=== PATIENT | male | born 1975 | race Caucasian/White ===

== ENCOUNTER 2016-06-21 04:52 | Emergency (ER) | payer OTHER ==
[~2016-06-21] VITALS: Ht 180.3 cm; Wt 84.4 kg
[~2016-06-21 04:52] MED LIST: 'PARAFON FORTE500 M1 PO; AMOXIL500 MG PO; ASPIRIN ADULT L81 M2 PO; ATIVAN1 MG PO; CLARITIN-D 24 H1 TER PO; CLARITIN10 MG PO; CLINDAMYCIN HC300 MG PO; CLINDAMYCIN150 MG PO; COLCHICINE0.6 MG PO; COLCRYS0.6 M1 PO; ENOXAPARIN100 MG/ML SC; FLAGYL500 MG PO; FLEXERIL5 MG PO; FLONASE ALLERG9.9 ML NAS; HYDROCODONE BIT1 T11 PO; IBU800 M1 PO; INDOCIN25 MG PO; KEFLEX500 MG PO; LISINOPRIL5 MG PO; LOPRESSOR25 MG PO; MEDROL DOSEPAK4 MG PO; MOBIC7.5 MG PO; MOTRIN800 MG PO; NAPROSYN500 MG PO; NATURE'S BLEND F1 MG PO; NICODERM C14 MG/241 T; NITRO-BID21 T; NKHM; NORCO 325 MG-51 TAB PO; PANTOPRAZOLE SO40 MG PO; PARAFON FORTE500 MG PO; PREDNISONE10 MG PO; PREDNISONE20 M1 PO; ROBITUSSIN AC 110 ML PO; TESSALON PERLE200 MG PO; TOPROL XL25 MG PO; TRAMADOL HCL50 MG PO; ULTRAM50 MG PO; VICODIN 500 MG-1 TAB PO; ZITHROMAX Z PA250 MG PO; ZYRTEC10 MG PO; Zofran4 MG PO
[2016-06-21 05:40] LABS: BASO % 0.3 % (0.0-1.0); EOS # 0.1 10*3/uL (0.0-0.4); EOS % 1.6 % (1.0-4.0); HEMATOCRIT 42.2 % (42.0-52.0); HEMOGLOBIN 14.1 g/dl (14.0-18.0); LYMPH # 2.5 10*3/uL (1.3-4.4); MEAN CELL VOLUME 87.2 fl (80.0-94.0); MEAN CORPUSCULAR HGB 29.1 pg (27.0-31.0); MEAN CORPUSCULAR HGB CONC 33.4 g/dl (33.0-37.0); MEAN PLATELET VOLUME 10.5 fl (9.6-12.3); MONO # 0.6 10*3/uL (0.1-1.0); MONO % 6.3 % (3.0-9.0); NEUT # 5.6 10*3/uL (2.3-7.9); NEUT % 63.6 % (47.0-73.0); PLATELET COUNT AUTOMATED 226 10*3/uL (130-400); RED BLOOD COUNT 4.84 10*6/uL (4.50-5.90); RED CELL DISTRI WIDTH 12.1 % (0-14.5); WHITE BLOOD COUNT 8.8 10*3/uL (4.8-10.8)
[2016-06-21 05:47] LABS: INTERNATIONAL NORM RATIO 0.9 (2.0-3.5); PROTHROMBIN TIME 9.9 SECONDS (9.0-12.4)
[2016-06-21 05:52] LABS: ALBUMIN 3.6 gm/dl (3.1-4.5); ALKALINE PHOSPHATASE 92 U/L (45-117); BILIRUBIN, TOTAL 0.3 mg/dl (0.2-1.0); BUN 5 mg/dl (7-24); CARBON DIOXIDE 24 mmol/L (21-32); CHLORIDE 109 mmol/L (98-107); EST GLOM FILT AFRICAN AMERICAN > 60 ml/min; GLUCOSE 110 mg/dL (65-99); POTASSIUM 3.7 mmol/L (3.5-5.1); SGOT/AST 15 IU/L (3-35); SGPT/ALT 39 U/L (12-78); SODIUM 143 mmol/L (136-145); TOTAL PROTEIN 6.6 gm/dL (6.4-8.2)
[2016-06-21 05:56] LABS: C-REACTIVE PROTEIN 0.68 MG/DL (0-0.3); CKMB 3.9 ng/ml (0.5-3.6); MAGNESIUM 1.9 mg/dL (1.5-2.1)
[2016-06-21 07:34] LABS: LA>2 REFLEX 2 HR DRAW NOW
[2016-08-06] MEDS ORDERED: ULTRAM50 MG PO (03:38)
[2016-08-06] MEDS ORDERED: BENTYL10 MG PO (03:38)
[2016-08-06] MEDS ORDERED: ZOFRAN ODT4 MG SL (03:38)
== END 2016-06-21 07:01 | disposition home or self-care (01) ==
LOC: ED 04:52
PROVIDERS: Emergency Medicine
DX: K80.20 Calculus of gallbladder without cholecystitis without obstruction (principal); K80.50 Calculus of bile duct without cholangitis or cholecystitis without obstruction; F41.9 Anxiety disorder, unspecified; M25.562 Pain in left knee; G89.29 Other chronic pain; M10.9 Gout, unspecified; F17.200 Nicotine dependence, unspecified, uncomplicated; I25.2 Old myocardial infarction; Z98.890 Other specified postprocedural states; Z79.82 Long term (current) use of aspirin; Z95.1 Presence of aortocoronary bypass graft

== ENCOUNTER 2016-10-24 08:12 | Emergency (ER) | payer OTHER ==
[~2016-10-24 08:12] MED LIST changes: +BENTYL10 MG PO; +ZOFRAN ODT4 MG SL
[2016-10-24] MEDS ORDERED: NAPROSYN500 MG PO (09:09)
== END 2016-10-24 09:52 | disposition home or self-care (01) ==
LOC: ED 08:12
DX: S93.602A Unspecified sprain of left foot, initial encounter (principal); F41.9 Anxiety disorder, unspecified; F17.200 Nicotine dependence, unspecified, uncomplicated; E78.5 Hyperlipidemia, unspecified; I21.4 Non-ST elevation (NSTEMI) myocardial infarction; Z79.82 Long term (current) use of aspirin; Z79.899 Other long term (current) drug therapy; X58.XXXA Exposure to other specified factors, initial encounter; Y93.89 Activity, other specified; Y92.9 Unspecified place or not applicable; Y99.9 Unspecified external cause status

== ENCOUNTER 2017-05-28 17:42 | Inpatient (IN) | payer OTHER ==
[~2017-05-28] VITALS: Ht 180.3 cm; Wt 91.4 kg
--- NOTE | ~2017-05-28 | CON ---
[place], [place] REPORT OF CONSULTATION [id number] UNIT #: [id number] ROOM: 529 DOCTOR: DIONTE KRISHNA MD BIRTHDATE: [birth year] DOS: 05/29/2017 REQUESTING PHYSICIAN: Dr. Funes. REASON FOR CONSULTATION: Chest pain. ASSESSMENT: 1. Current presentation with chest pain. 2. Coronary artery disease, status post bypass surgery in 2016. 3. Active tobacco abuse. 4. Hyperlipidemia. 5. Hypertension. 6. Early family history of heart disease. PLAN: 1. Cycle cardiac enzymes (already done and negative). 2. Keep patient n.p.o. a stress test. 3. Increase Toprol-XL to 25 mg b.i.d. 4. Stress test which can be done as an outpatient. 4. Enteric-coated aspirin 81 mg. 5. Smoking cessation. 6. Exercise and weight loss. 7. Early followup with [facility] in 2-4 weeks. HISTORY AND PHYSICAL: The patient is a pleasant 42-year-old gentleman unknown to our practice, was referred by Dr. Funes for further evaluation of complaint of chest pain that apparently has been going on for the past few days. The pain is constant initially across the chest, grossly dull aching and the patient felt like somebody pulled his muscle. It did reach 2-3/10, but yesterday had a single episode 6/10, last about 5 minutes and the patient was presented to the Emergency Room. Apparently prior to his bypass surgery, he had a pinching pain substernal and yesterday, he had another pinching pain, but was in the epigastric area. It did reach almost 3-4/10, nonradiating with no associated nausea, vomiting or diaphoresis. The patient is active, able to walk more than a mile with main limitation after that is his knee pain. Sleeps on 2 pillows with no reported PND, orthopnea, pedal edema or no snoring. Never had any symptomatic palpitation or any associated dizziness, lightheadedness or near syncope. No fever, no chills, no night sweats. Maintain good appetite. No reported weight loss. PAST MEDICAL HISTORY: As detailed in my assessment. SOCIAL HISTORY: The patient continued to smoke, has been doing this since he was in his teens, but currently at 1/4 pack a day. FAMILY HISTORY: The patient's father had myocardial infarction in his 40s. His mother had factor V Leiden deficiency. CURRENT MEDICATIONS: Aspirin, Toprol, vitamin B12, lisinopril, folic acid, vitamin D, Zofran, Dulcolax, Tylenol. [place], [place] REPORT OF CONSULTATION NAME: DANIEL HERMAN UNIT #: [id number] ROOM: 529 DOCTOR: DIONTE KRISHNA MD BIRTHDATE: [birth year] ALLERGIES: The patient has no known drug allergies. REVIEW OF SYSTEMS: Currently, the patient denies any headache, diplopia or blurry vision, no fever, no chills, no night sweats, no abdominal pain, no bright blood per rectum or tarry stools. He admits to joint pain, but no muscular pain, no anxiety, no depression, no polyuria, no polydipsia, no skin rash. PHYSICAL EXAMINATION: GENERAL: The patient alert and oriented x 3, quite pleasant patient. We have no apparent distress. VITAL SIGNS: Blood pressure 116/64, heart rate 71, respiratory rate of 16, temperature 98.1. HEENT: Extraocular muscle intact. Pupils equal, round and reactive to light. Conjunctivae: No pallor. Throat: No petechiae. NECK: Good carotid upstroke. Unable to appreciate any bruit, no lymphadenopathy, no thyromegaly. HEART: S1, S2 with faint holosystolic murmur in the left upper sternal border. No rub or sternal heave. CHEST AND BACK: No deformities. LUNGS: Clear to auscultation. Good air movement. No wheezing or rales. ABDOMEN: Soft, nontender, present bowel sounds, no masses, no bruits. EXTREMITIES: Lower extremities, no edema with faint distal pulses. NEUROLOGIC: Grossly nonfocal. SKIN: No significant rash. LABORATORY DATA: White count 8.9, hemoglobin 14.5, potassium 4.0, glucose 108, GFR more than 60%. Troponin less than 0.015. Triglyceride 159, total cholesterol 181, LDL 118 and HDL 31. Normal thyroid function test. DIONTE KRISHNA MD CM:CONSTR:REPORT OF CONSULTATION 1211 05/30/17 1541 interface
[2017-05-28 17:56] VITALS: BP 134/78
[2017-05-28 17:57] LABS: BASO % 0.3 % (0.0-1.0); EOS # 0.2 10*3/uL (0.0-0.4); EOS % 1.2 % (1.0-4.0); HEMATOCRIT 48.4 % (42.0-52.0); LYMPH % 22.5 % (27.0-41.0); MEAN CELL VOLUME 87.7 fl (80.0-94.0); MEAN CORPUSCULAR HGB CONC 33.1 g/dl (33.0-37.0); MEAN PLATELET VOLUME 10.7 fl (9.6-12.3); MONO # 0.7 10*3/uL (0.1-1.0); MONO % 4.9 % (3.0-9.0); NEUT # 9.5 10*3/uL (2.3-7.9); NEUT % 70.5 % (47.0-73.0); PLATELET COUNT AUTOMATED 253 10*3/uL (130-400); RED BLOOD COUNT 5.52 10*6/uL (4.50-5.90); RED CELL DISTRI WIDTH 12.5 % (0-14.5); WHITE BLOOD COUNT 13.4 10*3/uL (4.8-10.8)
[2017-05-28 18:07] LABS: INTERNATIONAL NORM RATIO 0.9 (2.0-3.5)
[2017-05-28 18:15] LABS: ALBUMIN 3.8 gm/dl (3.1-4.5); ALKALINE PHOSPHATASE 106 U/L (45-117); BUN 8 mg/dl (7-24); CHLORIDE 103 mmol/L (98-107); CREATININE 1.06 mg/dL (0.70-1.30); POTASSIUM 3.5 mmol/L (3.5-5.1); SGOT/AST 23 IU/L (3-35); SGPT/ALT 49 U/L (12-78); SODIUM 138 mmol/L (136-145); TOTAL PROTEIN 7.5 gm/dL (6.4-8.2)
[2017-05-28 18:17] LABS: TROPONIN I < 0.015 ng/ml (<0.045)
[2017-05-28 18:40] VITALS: BP 140/87
--- NOTE | 2017-05-28 19:00 | NUR ---
A 42, admitted to , under the services of ASHANTI Daugherty DO with a diagnosis of CHEST PAIN, R/O [place]. Chief complaint is CHEST PAIN THAT STARTED THIS AFTERNOON. HAD CABG 2 YEARS AGO.. Patient arrived via stretcher from ER. Monitor applied. Initial assessment completed. Vital signs taken and recorded. ASHANTI DAUGHERTY DO notified of admission to the unit. Orders received. See assessment for past medical history, medications and allergies. Patient and/or family oriented to unit. [facility] visitation policy reviewed. Clothing/patient valuable form completed. KIMBERLEE CALZADA
[2017-05-28 19:01] VITALS: BP 138/81
--- NOTE | 2017-05-28 19:01 | NUR ---
CHARTED PATIENT'S ADMISSION DOCUMENTATION UNDER THE TIME OF 1700 INSTEAD OF 1900. PATIENT ARRIVED TO THE FLOOR AT 1900. ALL OF THE DOCUMENTATION UNDER MY NAME SHOULD HAVE BEEN FOR THE TIME OF 1900.
[2017-05-28] MEDS ORDERED: LISINOPRIL10 M1 PO (19:14)
--- NOTE | 2017-05-28 19:21 | NUR ---
MEDS VERIFIED WITH [facility]. [facility] STATED PATIENT HAS NOT FILLED MEDS SINCE 11/03. PATIENT STATES HE HAS BEEN FILLING THEM AND TAKING THEM EVERYDAY. CHECKED CLAIM HISTORY AND THERE IS NOTHING SHOWING.
[2017-05-28 20:00] VITALS: BP 138/81
--- NOTE | 2017-05-28 20:43 | NUR ---
Called and notified Dr. Lomax regarding consult. No new orders received.
[2017-05-28 21:10] VITALS: BP 142/79
[2017-05-29] VITALS: BP 116/60
--- NOTE | 2017-05-29 01:01 | NUR ---
24 HR chart check completed.
[2017-05-29 06:16] LABS: BASO % 0.4 % (0.0-1.0); EOS # 0.2 10*3/uL (0.0-0.4); EOS % 1.7 % (1.0-4.0); HEMATOCRIT 42.8 % (42.0-52.0); HEMOGLOBIN 14.5 g/dl (14.0-18.0); LYMPH # 2.5 10*3/uL (1.3-4.4); LYMPH % 28.2 % (27.0-41.0); MEAN CELL VOLUME 87.9 fl (80.0-94.0); MEAN CORPUSCULAR HGB 29.8 pg (27.0-31.0); MEAN CORPUSCULAR HGB CONC 33.9 g/dl (33.0-37.0); MEAN PLATELET VOLUME 10.6 fl (9.6-12.3); MONO # 0.6 10*3/uL (0.1-1.0); MONO % 7.2 % (3.0-9.0); NEUT # 5.5 10*3/uL (2.3-7.9); NEUT % 62.1 % (47.0-73.0); PLATELET COUNT AUTOMATED 211 10*3/uL (130-400); RED BLOOD COUNT 4.87 10*6/uL (4.50-5.90); RED CELL DISTRI WIDTH 12.6 % (0-14.5); WHITE BLOOD COUNT 8.9 10*3/uL (4.8-10.8)
[2017-05-29 06:43] LABS: ALBUMIN 3.2 gm/dl (3.1-4.5); BUN 8 mg/dl (7-24); CHLORIDE 108 mmol/L (98-107); SODIUM 140 mmol/L (136-145)
[2017-05-29 06:48] LABS: ACT PARTIAL THROMBO TIME 23.8 SECONDS (20.8-31.5); INTERNATIONAL NORM RATIO 0.9 (2.0-3.5)
[2017-05-29 06:53] LABS: ALKALINE PHOSPHATASE 89 U/L (45-117); CHOLESTEROL 181 mg/dL (<200); CREATININE 0.87 mg/dL (0.70-1.30); FREE T4 0.93 ng/dl (0.76-1.46); HDL CHOLESTEROL 31 mg/dl (40-60); LDL CHOLESTEROL 118 mg/dL (9-159); PHOSPHOROUS 3.2 mg/dL (2.5-4.9); SGOT/AST 13 IU/L (3-35); SGPT/ALT 41 U/L (12-78); TOTAL PROTEIN 6.3 gm/dL (6.4-8.2); TRIGLYCERIDES 159 mg/dl (<150); VLDL CHOLESTEROL 32 mg/dL (6-40)
[2017-05-29 07:38] LABS: VITAMIN D, 25-HYDROXY 8.2 ng/mL (30-100)
--- NOTE | 2017-05-29 07:58 | NUR ---
Shift chart check completed.
[2017-05-29 08:00] VITALS: BP 116/64
--- NOTE | 2017-05-29 09:38 | NUR ---
Dr Lomax called and stated he is on his way to see the patient.
[2017-05-29] MEDS ORDERED: VITAMIN D-32000 UNI1 PO (11:46)
[2017-05-29] MEDS ORDERED: B12,B-12,B 12500 MC1 PO (11:46)
[2017-05-29] MEDS ORDERED: METOPROLOL SUCC25 M2 PO (12:12)
--- NOTE | 2017-05-29 12:27 | NUR ---
WENT OVER D/C INSTRUCTIONS WITH PATIENT. HE VERBALIZED UNDERSTANDING THAT HIS SCRIPTS WERE SENT TO PHARMACY AND THAT HE NEEDS TO BE HERE FOR A STRESS TEST ON TUESDAY. REMOVED IV WITH CATHETER INTACT AND BLEEDING CONTROLLED. PATIENT AMBULATED TO THE EXIT. PATIENT IS D/C HOME.
[2017-05-31] MEDS ORDERED: METOPROLOL SUCC50 M1 PO (10:21)
== END 2017-05-29 12:27 | disposition home or self-care (01) | DRG 313 ==
LOC: ED 17:42 → EDHOLD 18:31 → 5E 18:48
PROVIDERS: Emergency Medicine; Hospitalist; ADMIT Internal Medicine
DX: R07.9 Chest pain, unspecified (principal); I25.708 Atherosclerosis of coronary artery bypass graft(s), unspecified, with other forms of angina pectoris; E44.0 Moderate protein-calorie malnutrition; R65.10 Systemic inflammatory response syndrome (SIRS) of non-infectious origin without acute organ dysfunction; E78.5 Hyperlipidemia, unspecified; I10 Essential (primary) hypertension; F41.9 Anxiety disorder, unspecified; M25.562 Pain in left knee; E53.8 Deficiency of other specified B group vitamins; E55.9 Vitamin D deficiency, unspecified; G89.29 Other chronic pain; F17.210 Nicotine dependence, cigarettes, uncomplicated; I25.2 Old myocardial infarction; Z95.1 Presence of aortocoronary bypass graft; Z87.01 Personal history of pneumonia (recurrent); Z83.3 Family history of diabetes mellitus; Z82.49 Family history of ischemic heart disease and other diseases of the circulatory system; Z79.899 Other long term (current) drug therapy; Z71.6 Tobacco abuse counseling; Z83.2 Family history of diseases of the blood and blood-forming organs and certain disorders involving the immune mechanism

== ENCOUNTER → 2017-05-31 | Outpatient (CLI) | payer OTHER ==
[~2017-05-31] MED LIST changes: +B12,B-12,B 12500 MC1 PO; +LISINOPRIL10 M1 PO; +METOPROLOL SUCC25 M2 PO; +METOPROLOL SUCC50 M1 PO; +VITAMIN D-32000 UNI1 PO
--- NOTE | ~2017-05-31 | ST ---
[place], [place] EXERCISE STRESS TEST [facility]PORT [id number] UN[facility] #: [id number] ROOM: DOCTOR: JEZ HAIRSTON MD BIRTHDATE: [birth year] DOS: 05/31/2017 INDICATION: Central chest pain. REFERRING: Dr. Vitaliy Lomax. The patient underwent standard Jae protocol stress EKG. The patient's baseline EKG showed normal sinus rhythm with nonspecific ST-T wave changes. The patient's baseline heart rate was 81 with a blood pressure 132/80. The patient exercised for a total of 7 minutes and 40 seconds achieving a maximum heart rate of 153 with peak blood pressure that was 212/84. The patient's maximum heart rate of 153 represents 85% of maximum predicted. The patient had increased exercise capacity level of 10 mets. The patient was noted no chest pain, EKG changes, or arrhythmias. SUMMARY OF FINDINGS: 1. Negative exercise treadmill stress. 2. Persaud Treadmill score of 7.5, portending a low risk prognosis. 3. Please see separate report for perfusion scan imaging. JEZ HAIRSTON MD CM:STRESS:EXERCISE STRESS TEST REPORT 1212 1325 JEZ HAIRSTON MD
--- NOTE | 2017-05-31 11:30 | NUR ---
INFORMED CONSENT OBTAINED FOR EXERCISE CARDIOLITE STRESS TEST WITH DR. HAIRSTON. RESTING EKG NSR WITH A SUPINE HR OF 81 WITH BP OF 132/80 AND HR OF 82 WITH BP OF 134/72 IN STANDING POSITION. PT COMPLETED 7:40 OF A BOBY PROTOCOL WITH COMPLETION OF 1:40 OF STAGE III AT 3.4 MPH AND 14% GRADE. REACHED A PEAK HR OF 153 WHICH IS 85% OF PREDICTED MAX WITH A PEAK BP OF 212/98. HAD NO CHEST PAIN OR ANY EKG CHANGES. TEST TERMINATED BECAUSE OF FATIGUE AND SHORTNESS OF BREATH. HAS A FAIR EXERCISE TOLERANCE. LAST RECOVERY HR OF 104 WITH BP OF 138/70. TO NUCLEAR MEDICINE IN STABLE CONDITION FOR SCANNING.
== END | disposition home or self-care (01) ==
LOC: CARD 01:37
DX: I25.10 Atherosclerotic heart disease of native coronary artery without angina pectoris (principal)

== ENCOUNTER 2017-09-11 12:57 | Emergency (ER) | payer OTHER ==
[~2017-09-11] VITALS: Ht 154.9 cm; Wt 93.0 kg
[2017-09-11] MEDS ORDERED: DOXYCYCLINE100 M3 PO (13:46)
[2017-09-11] MEDS ORDERED: TESSALON PERLE100 M1 PO (13:46)
[2017-09-11] MEDS ORDERED: PREDNISONE20 M1 PO (13:46)
== END 2017-09-11 13:52 | disposition home or self-care (01) ==
LOC: ED 12:57
DX: J40 Bronchitis, not specified as acute or chronic (principal); F17.200 Nicotine dependence, unspecified, uncomplicated; Z79.82 Long term (current) use of aspirin

== ENCOUNTER → 2017-09-20 | Outpatient (CLI) | payer OTHER ==
[~2017-09-20] MED LIST changes: +DOXYCYCLINE100 M3 PO; +TESSALON PERLE100 M1 PO
[2017-09-20 09:11] LABS: HEMATOCRIT 45.4 % (42.0-52.0); HEMOGLOBIN 14.8 g/dl (14.0-18.0); MEAN CELL VOLUME 88.5 fl (80.0-94.0); MEAN CORPUSCULAR HGB 28.8 pg (27.0-31.0); MEAN CORPUSCULAR HGB CONC 32.6 g/dl (33.0-37.0); MEAN PLATELET VOLUME 10.7 fl (9.6-12.3); RED BLOOD COUNT 5.13 10*6/uL (4.50-5.90); RED CELL DISTRI WIDTH 12.8 % (0-14.5); WHITE BLOOD COUNT 15.5 10*3/uL (4.8-10.8)
[2017-09-20 09:33] LABS: ALBUMIN 3.3 gm/dl (3.1-4.5); BUN 11 mg/dl (7-24); CHLORIDE 107 mmol/L (98-107); POTASSIUM 3.6 mmol/L (3.5-5.1); SGPT/ALT 23 U/L (12-78); SODIUM 140 mmol/L (136-145)
[2017-09-20 09:36] LABS: ALKALINE PHOSPHATASE 78 U/L (45-117); CHOLESTEROL 154 mg/dL (<200); CREATININE 0.91 mg/dL (0.70-1.30); HDL CHOLESTEROL 35 mg/dl (40-60); LDL CHOLESTEROL 93 mg/dL (9-159); SGOT/AST 13 IU/L (3-35); TOTAL PROTEIN 6.5 gm/dL (6.4-8.2); TRIGLYCERIDES 130 mg/dl (<150); VLDL CHOLESTEROL 26 mg/dL (6-40)
== END | disposition home or self-care (01) ==
LOC: LAB 08:37
PROVIDERS: Family Medicine
DX: J40 Bronchitis, not specified as acute or chronic (principal); E78.00 Pure hypercholesterolemia, unspecified

== ENCOUNTER 2017-10-21 18:05 | Emergency (ER) | payer OTHER ==
[~2017-10-21] VITALS: Ht 180.3 cm; Wt 93.0 kg
[2017-10-21] MEDS ORDERED: Motrin,Rufen800 MG PO (19:56)
[2017-10-21] MEDS ORDERED: CYCLOBENZAPRINE5 M3 PO (19:56)
== END 2017-10-21 20:12 | disposition home or self-care (01) ==
LOC: ED 18:05
DX: M62.838 Other muscle spasm (principal); M54.2 Cervicalgia; M25.512 Pain in left shoulder; F17.200 Nicotine dependence, unspecified, uncomplicated; Z95.1 Presence of aortocoronary bypass graft; Z98.890 Other specified postprocedural states; Z79.899 Other long term (current) drug therapy; Z79.82 Long term (current) use of aspirin

== ENCOUNTER → 2017-12-20 | Outpatient (CLI) | payer OTHER ==
[~2017-12-20] MED LIST changes: +CYCLOBENZAPRINE5 M3 PO; +Motrin,Rufen800 MG PO
== END | disposition home or self-care (01) ==
LOC: RAD 13:52
DX: M25.461 Effusion, right knee (principal)

== ENCOUNTER 2018-04-21 12:10 | Emergency (ER) | payer SELFPAY ==
[~2018-04-21] VITALS: Ht 177.8 cm; Wt 88.5 kg
[~2018-04-21 12:10] MED LIST changes: +EC NAPROSYN500 MG PO
[2018-04-21] MEDS ORDERED: CLARITIN10 MG PO (12:20)
[2018-04-21] MEDS ORDERED: FLONASE ALLERG9.9 ML NAS (12:20)
[2018-04-21] MEDS ORDERED: PREDNISONE10 MG PO (12:20)
== END 2018-04-21 13:00 | disposition home or self-care (01) ==
LOC: ED 12:10
DX: J20.9 Acute bronchitis, unspecified (principal); R03.0 Elevated blood-pressure reading, without diagnosis of hypertension; M25.512 Pain in left shoulder; I25.10 Atherosclerotic heart disease of native coronary artery without angina pectoris; G89.29 Other chronic pain; E78.5 Hyperlipidemia, unspecified; I10 Essential (primary) hypertension; I25.2 Old myocardial infarction; F17.200 Nicotine dependence, unspecified, uncomplicated; Z95.1 Presence of aortocoronary bypass graft; Z79.1 Long term (current) use of non-steroidal anti-inflammatories (NSAID); Z79.899 Other long term (current) drug therapy

== ENCOUNTER 2018-08-19 18:22 | Emergency (ER) | payer OTHER ==
[~2018-08-19] VITALS: Ht 180.3 cm; Wt 88.5 kg
[2018-08-19] MEDS ORDERED: IBU800 MG PO (19:54)
[2018-08-19] MEDS ORDERED: PREDNISONE20 M1 PO (19:54)
[2018-08-19] MEDS ORDERED: CYCLOBENZAPRINE10 MG PO (19:54)
== END 2018-08-19 19:53 | disposition home or self-care (01) ==
LOC: ED 18:22
DX: M62.830 Muscle spasm of back (principal); I10 Essential (primary) hypertension; I25.2 Old myocardial infarction; F17.200 Nicotine dependence, unspecified, uncomplicated; Z79.899 Other long term (current) drug therapy; X50.3XXA Overexertion from repetitive movements, initial encounter; Y93.54 Activity, bowling; Y92.89 Other specified places as the place of occurrence of the external cause; Y99.8 Other external cause status

== ENCOUNTER 2018-12-10 21:24 | Emergency (ER) | payer OTHER ==
[~2018-12-10] VITALS: Wt 88.5 kg
[~2018-12-10 21:24] MED LIST changes: +CYCLOBENZAPRINE10 MG PO; +IBU800 MG PO
[2018-12-10] MEDS ORDERED: MEDROL DOSEPAK4 MG PO (23:34)
== END 2018-12-10 23:45 | disposition home or self-care (01) ==
LOC: ED 21:24
DX: M76.62 Achilles tendinitis, left leg (principal); I25.10 Atherosclerotic heart disease of native coronary artery without angina pectoris; I10 Essential (primary) hypertension; G89.29 Other chronic pain; E78.5 Hyperlipidemia, unspecified; I25.2 Old myocardial infarction; F17.200 Nicotine dependence, unspecified, uncomplicated; Z79.899 Other long term (current) drug therapy

== ENCOUNTER 2019-01-06 11:43 | Emergency (ER) | payer OTHER ==
[~2019-01-06] VITALS: Ht 180.3 cm; Wt 88.5 kg
[2019-01-06] MEDS ORDERED: NAPROSYN500 MG PO (13:05)
== END 2019-01-06 13:22 | disposition home or self-care (01) ==
LOC: ED 11:43
DX: G89.29 Other chronic pain (principal); M25.561 Pain in right knee; F17.200 Nicotine dependence, unspecified, uncomplicated; Z79.899 Other long term (current) drug therapy

== ENCOUNTER 2019-01-18 18:21 | Emergency (ER) | payer OTHER ==
[~2019-01-18] VITALS: Ht 180.3 cm; Wt 89.4 kg
[2019-01-18] MEDS ORDERED: ALLOPURINOL300 MG PO (18:22)
[2019-01-18] MEDS ORDERED: NORCO 5-325 TA1 EACH PO (19:08)
== END 2019-01-18 19:16 | disposition home or self-care (01) ==
LOC: ED 18:21
DX: M10.061 Idiopathic gout, right knee (principal); F17.200 Nicotine dependence, unspecified, uncomplicated; Z79.899 Other long term (current) drug therapy

== ENCOUNTER 2020-10-04 15:16 | Emergency (ER) | payer OTHER ==
[~2020-10-04] VITALS: Ht 177.8 cm; Wt 90.7 kg
[~2020-10-04 15:16] MED LIST changes: +ALLOPURINOL300 MG PO; +NORCO 5-325 TA1 EACH PO
[2020-10-04] MEDS ORDERED: MEDROL DOSEPAK4 MG PO (16:37)
[2020-10-04] MEDS ORDERED: Motrin,Rufen800 MG PO (16:37)
== END 2020-10-04 16:50 | disposition home or self-care (01) ==
LOC: ED 15:16
DX: M25.511 Pain in right shoulder (principal); F17.200 Nicotine dependence, unspecified, uncomplicated; Z79.899 Other long term (current) drug therapy; Z95.1 Presence of aortocoronary bypass graft; Z98.890 Other specified postprocedural states

== ENCOUNTER 2020-12-06 12:51 | Emergency (ER) | payer OTHER ==
[2020-12-06] MEDS ORDERED: PRILOSEC20 M1 PO (13:45)
[2020-12-06] MEDS ORDERED: TYLENOL325 M1 PO (14:07)
== END 2020-12-06 14:16 | disposition home or self-care (01) ==
LOC: ED 12:51
DX: K21.9 Gastro-esophageal reflux disease without esophagitis (principal); M71.561 Other bursitis, not elsewhere classified, right knee; I25.10 Atherosclerotic heart disease of native coronary artery without angina pectoris; F41.9 Anxiety disorder, unspecified; E78.5 Hyperlipidemia, unspecified; I25.2 Old myocardial infarction; I10 Essential (primary) hypertension; F17.200 Nicotine dependence, unspecified, uncomplicated; Z79.899 Other long term (current) drug therapy; Z79.82 Long term (current) use of aspirin; Z98.890 Other specified postprocedural states

== ENCOUNTER 2021-04-10 09:12 | Emergency (ER) | payer OTHER ==
[~2021-04-10] VITALS: Ht 180.3 cm; Wt 97.5 kg
[~2021-04-10 09:12] MED LIST changes: +PRILOSEC20 M1 PO; +TYLENOL325 M1 PO
[2021-04-10] MEDS ORDERED: Motrin,Rufen800 MG PO (12:55)
== END 2021-04-10 13:03 | disposition home or self-care (01) ==
LOC: ED 09:12
DX: S86.912A Strain of unspecified muscle(s) and tendon(s) at lower leg level, left leg, initial encounter (principal); Z79.899 Other long term (current) drug therapy; F17.200 Nicotine dependence, unspecified, uncomplicated; X58.XXXA Exposure to other specified factors, initial encounter; Y93.89 Activity, other specified; Y92.89 Other specified places as the place of occurrence of the external cause; Y99.8 Other external cause status

== ENCOUNTER → 2021-06-04 | Outpatient (CLI) | payer OTHER | END | disposition home or self-care (01) | LOC: COVID19 16:52 | PROVIDERS: ATTEND Internal Medicine | DX: Z11.52 Encounter for screening for COVID-19 (principal) ==

== ENCOUNTER 2021-11-13 09:36 | Emergency (ER) | payer OTHER ==
[~2021-11-13] VITALS: Ht 177.8 cm; Wt 95.3 kg
[2021-11-13] MEDS ORDERED: PREDNISONE50 MG PO (10:03)
== END 2021-11-13 10:15 | disposition home or self-care (01) ==
LOC: ED 09:36
DX: S46.912A Strain of unspecified muscle, fascia and tendon at shoulder and upper arm level, left arm, initial encounter (principal); Z98.890 Other specified postprocedural states; Z95.1 Presence of aortocoronary bypass graft; F17.200 Nicotine dependence, unspecified, uncomplicated; X50.0XXA Overexertion from strenuous movement or load, initial encounter; Y93.89 Activity, other specified; Y92.89 Other specified places as the place of occurrence of the external cause; Y99.8 Other external cause status

== ENCOUNTER 2022-05-18 10:09 | Emergency (ER) | payer OTHER ==
[~2022-05-18] VITALS: Ht 177.8 cm; Wt 97.5 kg
[~2022-05-18 10:09] MED LIST changes: +PREDNISONE50 MG PO
[2022-05-18] MEDS ORDERED: METHOCARBAMOL500 M1 PO (13:48)
[2022-05-18] MEDS ORDERED: NAPROSYN500 MG PO (13:48)
== END 2022-05-18 13:57 | disposition home or self-care (01) ==
LOC: ED 10:09
DX: M25.512 Pain in left shoulder (principal); Z95.818 Presence of other cardiac implants and grafts; Z95.1 Presence of aortocoronary bypass graft; Z87.891 Personal history of nicotine dependence; Z98.890 Other specified postprocedural states

== ENCOUNTER 2022-11-10 18:12 | Emergency (ER) | payer OTHER ==
[~2022-11-10] VITALS: Ht 177.8 cm; Wt 97.5 kg
[~2022-11-10 18:12] MED LIST changes: +METHOCARBAMOL500 M1 PO
[2022-11-10] MEDS ORDERED: VIBRAMYCIN100 MG PO (18:43)
== END 2022-11-10 19:04 | disposition home or self-care (01) ==
LOC: ED 18:12
DX: L72.0 Epidermal cyst (principal); F41.9 Anxiety disorder, unspecified; J45.909 Unspecified asthma, uncomplicated; I10 Essential (primary) hypertension; I25.2 Old myocardial infarction; F31.9 Bipolar disorder, unspecified; M10.9 Gout, unspecified; Z98.890 Other specified postprocedural states; F17.200 Nicotine dependence, unspecified, uncomplicated

== ENCOUNTER 2023-01-12 15:27 | Emergency (ER) | payer OTHER ==
[~2023-01-12] VITALS: Ht 175.2 cm; Wt 95.3 kg
[~2023-01-12 15:27] MED LIST changes: +VIBRAMYCIN100 MG PO
[2023-01-12 16:27] LABS: BASO # 0.1 10*3/uL (0.0-0.1); BASO % 0.5 % (0.0-1.0); EOS # 0.2 10*3/uL (0.0-0.4); EOS % 1.4 % (1.0-4.0); HEMATOCRIT 45.6 % (42.0-52.0); LYMPH # 3.5 10*3/uL (1.3-4.4); LYMPH % 26.3 % (27.0-41.0); MEAN CELL VOLUME 86.9 fl (80.0-94.0); MEAN CORPUSCULAR HGB 29.7 pg (27.0-31.0); MEAN CORPUSCULAR HGB CONC 34.2 g/dl (33.0-37.0); MEAN PLATELET VOLUME 10.5 fl (9.6-12.3); MONO # 0.8 10*3/uL (0.1-1.0); MONO % 6.2 % (3.0-9.0); NEUT # 8.6 10*3/uL (2.3-7.9); NEUT % 65.3 % (47.0-73.0); PLATELET COUNT AUTOMATED 226 10*3/uL (130-400); RED BLOOD COUNT 5.25 10*6/uL (4.50-5.90); RED CELL DISTRI WIDTH 12.5 % (0-14.5); WHITE BLOOD COUNT 13.2 10*3/uL (4.8-10.8)
[2023-01-12 16:38] LABS: ACT PARTIAL THROMBO TIME 26.7 SECONDS (20.0-32.1)
[2023-01-12 16:54] LABS: ALKALINE PHOSPHATASE 88 U/L (46-116); BUN 5 mg/dl (9-23); CHLORIDE 107 mmol/L (98-107); POTASSIUM 3.9 mmol/L (3.4-5.1); SGPT/ALT 27 U/L (10-49); TOTAL PROTEIN 6.9 gm/dL (6.0-8.0)
== END 2023-01-12 18:52 | disposition home or self-care (01) ==
LOC: ED 15:27
PROVIDERS: Emergency Medicine
DX: I73.9 Peripheral vascular disease, unspecified (principal); F41.9 Anxiety disorder, unspecified; J45.909 Unspecified asthma, uncomplicated; I10 Essential (primary) hypertension; I25.2 Old myocardial infarction; F31.9 Bipolar disorder, unspecified; M10.9 Gout, unspecified; Z98.890 Other specified postprocedural states; F17.200 Nicotine dependence, unspecified, uncomplicated

== ENCOUNTER → 2023-01-17 | Outpatient (CLI) | payer OTHER ==
[2023-01-17 11:23] LABS: CHOLESTEROL 185 mg/dL (<200); LDL CHOLESTEROL 127 mg/dL (9-159); TRIGLYCERIDES 103 mg/dl (<150)
== END | disposition home or self-care (01) ==
LOC: LAB 09:54
PROVIDERS: ATTEND Family Medicine
DX: E78.00 Pure hypercholesterolemia, unspecified (principal)

== ENCOUNTER 2023-02-23 21:56 | Emergency (ER) | payer OTHER ==
[~2023-02-23] VITALS: Ht 177.8 cm; Wt 94.8 kg
[2023-02-23] MEDS ORDERED: WELLBUTRIN XL150 MG PO (23:14)
== END 2023-02-24 00:56 | disposition home or self-care (01) ==
LOC: ED 21:56
DX: I82.5Z1 Chronic embolism and thrombosis of unspecified deep veins of right distal lower extremity (principal); I73.9 Peripheral vascular disease, unspecified; F17.200 Nicotine dependence, unspecified, uncomplicated; Z98.890 Other specified postprocedural states; Z79.82 Long term (current) use of aspirin; Z79.899 Other long term (current) drug therapy

== ENCOUNTER → 2023-06-21 | Outpatient (CLI) | payer OTHER ==
[~2023-06-21] MED LIST changes: +WELLBUTRIN XL150 MG PO
[2023-06-24 14:07] LABS: FREE PSA 0.153 ng/mL (.)
== END | disposition home or self-care (01) ==
LOC: LAB 09:10
PROVIDERS: ATTEND Family Medicine
DX: N40.0 Benign prostatic hyperplasia without lower urinary tract symptoms (principal)

== ENCOUNTER → 2023-08-19 | Outpatient (CLI) | payer OTHER ==
[2023-08-19 10:32] LABS: HEMATOCRIT 47.8 % (42.0-52.0); MEAN CELL VOLUME 89.2 fl (80.0-94.0); MEAN CORPUSCULAR HGB 28.9 pg (27.0-31.0); MEAN CORPUSCULAR HGB CONC 32.4 g/dl (33.0-37.0); MEAN PLATELET VOLUME 10.7 fl (9.6-12.3); RED BLOOD COUNT 5.36 10*6/uL (4.50-5.90); RED CELL DISTRI WIDTH 13.1 % (0-14.5); WHITE BLOOD COUNT 11.2 10*3/uL (4.8-10.8)
[2023-08-19 11:15] LABS: ALKALINE PHOSPHATASE 94 U/L (46-116); BUN 7 mg/dl (9-23); CHLORIDE 108 mmol/L (98-107); CHOLESTEROL 194 mg/dL (<200); FREE T4 1.06 ng/dl (0.89-1.76); LDL CHOLESTEROL 138 mg/dL (9-159); POTASSIUM 4.4 mmol/L (3.4-5.1); SGPT/ALT 23 U/L (5-49); TRIGLYCERIDES 103 mg/dl (<150)
[2023-08-19 11:16] LABS: VITAMIN D, 25-HYDROXY 7.1 ng/mL (30-100)
== END ==
LOC: LAB 09:57
PROVIDERS: ATTEND Family Medicine
DX: I10 Essential (primary) hypertension (principal); E55.9 Vitamin D deficiency, unspecified; R53.83 Other fatigue; F41.9 Anxiety disorder, unspecified; E74.00 Glycogen storage disease, unspecified

== ENCOUNTER 2023-11-21 20:07 | Emergency (ER) | payer OTHER ==
[~2023-11-21] VITALS: Ht 177.8 cm; Wt 97.5 kg
[2023-11-21] MEDS ORDERED: METHOCARBAMOL750 M1 PO (21:10)
[2023-11-21] MEDS ORDERED: METHOCARBAMOL 500 MG TAB PO ONE (21:10)
[2023-11-21] MEDS ORDERED: NAPROXEN250 MG PO (21:10)
[2023-11-21] MEDS ORDERED: methylPREDNISolone sod succ 125 MG VIAL IM ONE (21:10)
== END 2023-11-21 21:32 | disposition home or self-care (01) ==
LOC: ED 20:07
DX: S29.012A Strain of muscle and tendon of back wall of thorax, initial encounter (principal); F41.9 Anxiety disorder, unspecified; J45.909 Unspecified asthma, uncomplicated; I10 Essential (primary) hypertension; I25.2 Old myocardial infarction; F31.9 Bipolar disorder, unspecified; M10.9 Gout, unspecified; F17.200 Nicotine dependence, unspecified, uncomplicated; Z98.890 Other specified postprocedural states; X58.XXXA Exposure to other specified factors, initial encounter; Y93.89 Activity, other specified; Y92.029 Unspecified place in mobile home as the place of occurrence of the external cause; Y99.8 Other external cause status

== ENCOUNTER → 2024-02-09 | Outpatient (CLI) | payer OTHER ==
[~2024-02-09] MED LIST changes: +METHOCARBAMOL750 M1 PO; +NAPROXEN250 MG PO
[2024-02-09 07:21] LABS: HEMATOCRIT 43.7 % (42.0-52.0); MEAN CELL VOLUME 85.7 fl (80.0-94.0); MEAN CORPUSCULAR HGB 28.8 pg (27.0-31.0); MEAN CORPUSCULAR HGB CONC 33.6 g/dl (33.0-37.0); MEAN PLATELET VOLUME 10.4 fl (9.6-12.3); RED BLOOD COUNT 5.1 10*6/uL (4.50-5.90); RED CELL DISTRI WIDTH 12.7 % (0-14.5); WHITE BLOOD COUNT 10.9 10*3/uL (4.8-10.8)
[2024-02-09 08:14] LABS: ALKALINE PHOSPHATASE 97 U/L (46-116); BUN 8 mg/dl (9-23); CHLORIDE 107 mmol/L (98-107); CHOLESTEROL 175 mg/dL (<200); LDL CHOLESTEROL 91 mg/dL (9-159); POTASSIUM 3.8 mmol/L (3.4-5.1); SGPT/ALT 18 U/L (5-49); TOTAL PROTEIN 6.8 gm/dL (6.0-8.0); TRIGLYCERIDES 248 mg/dl (<150)
[2024-02-09 08:17] LABS: VITAMIN D, 25-HYDROXY 10.7 ng/mL (30-100)
[2024-02-11 19:06] LABS: TESTOSTERONE FREE, (DIRECT) 8.6 pg/mL (6.8-21.5)
== END | disposition home or self-care (01) ==
LOC: LAB 07:08
PROVIDERS: ATTEND Family Medicine
DX: I10 Essential (primary) hypertension (principal); E55.9 Vitamin D deficiency, unspecified; E78.00 Pure hypercholesterolemia, unspecified; R53.83 Other fatigue; D72.829 Elevated white blood cell count, unspecified

== ENCOUNTER 2024-04-13 07:27 | Emergency (ER) | payer OTHER ==
[~2024-04-13] VITALS: Ht 177.8 cm; Wt 97.5 kg
[2024-04-13] MEDS ORDERED: GABAPENTIN400 MG PO (08:06)
[2024-04-13] MEDS ORDERED: CLOPIDOGREL75 MG PO (08:06)
[2024-04-13] MEDS ORDERED: Acetaminophen/Oxycodone 5 MG/325 MG TABLET PO ONE (08:20)
[2024-04-13] MEDS ORDERED: MELOXICAM15 MG PO (08:23)
== END 2024-04-13 08:39 | disposition home or self-care (01) ==
LOC: ED 07:27
DX: S53.402A Unspecified sprain of left elbow, initial encounter (principal); F41.9 Anxiety disorder, unspecified; J45.909 Unspecified asthma, uncomplicated; F31.9 Bipolar disorder, unspecified; I10 Essential (primary) hypertension; I25.2 Old myocardial infarction; M10.9 Gout, unspecified; F17.200 Nicotine dependence, unspecified, uncomplicated; Z98.890 Other specified postprocedural states; X50.0XXA Overexertion from strenuous movement or load, initial encounter; Y93.89 Activity, other specified; Y92.89 Other specified places as the place of occurrence of the external cause; Y99.8 Other external cause status

== ENCOUNTER 2024-07-31 16:11 | Emergency (ER) | payer OTHER ==
[~2024-07-31] VITALS: Wt 97.5 kg
[~2024-07-31 16:11] MED LIST changes: +CLOPIDOGREL75 MG PO; +GABAPENTIN400 MG PO; +MELOXICAM15 MG PO
[2024-07-31] MEDS ORDERED: AVPAK AZITHROM250 M1 PO (16:32)
[2024-07-31] MEDS ORDERED: Ondansetron4 MG PO (16:32)
== END 2024-07-31 16:45 | disposition home or self-care (01) ==
LOC: ED 16:11
DX: J32.9 Chronic sinusitis, unspecified (principal); R11.2 Nausea with vomiting, unspecified; I10 Essential (primary) hypertension; E78.5 Hyperlipidemia, unspecified; I25.10 Atherosclerotic heart disease of native coronary artery without angina pectoris; F17.210 Nicotine dependence, cigarettes, uncomplicated; Z79.82 Long term (current) use of aspirin; Z98.890 Other specified postprocedural states; Z98.61 Coronary angioplasty status